=== PATIENT | male | born 1960 | race Caucasian/White ===

== ENCOUNTER 2019-06-05 12:37 | Emergency (ER) | payer BC ==
[2019-06-05 13:18] LABS: CHLORIDE,CL 98 mEq/L (98-106); SODIUM,NA 137 mEq/L (136-145)
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
== END 2019-06-05 17:40 | disposition home or self-care (01) ==
LOC: CC.ED 12:37
DX: R07.89 Other chest pain (principal); I10 Essential (primary) hypertension; E78.00 Pure hypercholesterolemia, unspecified; Z77.22 Contact with and (suspected) exposure to environmental tobacco smoke (acute) (chronic); Z79.899 Other long term (current) drug therapy; Z88.8 Allergy status to other drugs, medicaments and biological substances
CPT/HCPCS: 36415; 71046; 80053; 82550; 83615; 84484; 85025; 85610; 85730; 87070; 93005; 99285-25

== ENCOUNTER → 2020-03-12 | Day surgery (SDC) | payer BC ==
[~2020-03-12] MED LIST: Lactated Ringers 1,000 ML IV SCH; Propofol 200 MG/20 ML SDV IV ONE
--- NOTE | 2020-03-12 13:05 | OR ---
DATE OF OPERATION: 03/12/2020 PREOPERATIVE DIAGNOSIS: POSITIVE COLOGUARD. POSTOPERATIVE DIAGNOSIS: POSITIVE COLOGUARD. SURGEON: Satnam Collado MD PROCEDURE: FULL-LENGTH COLONOSCOPY. ANESTHESIA: MAC. COMPLICATIONS: None. SPECIMEN: None. FINDINGS: 1. Full-length colonoscopy. 2. Mild sigmoid diverticulosis. RECOMMENDATIONS: Routine colonoscopy per ACS guidelines. INDICATIONS: The patient was in for routine physical. He had elected to proceed with colon cancer screening with a Cologuard. Cologuard was positive and he agreed to diagnostic scope. DESCRIPTION OF PROCEDURE: The patient was prepped and draped, placed in the left lateral decubitus position. A lubricated Olympus colonoscope was inserted and with some degree of difficulty advanced to the cecum. The patient had a significant amount of scar tissue in his abdomen which made advancement very difficult and he was a tortuous scope as well as given his size. We were able to get over to the cecal pouch. I was able to directly look at the ileocecal valve and the appendiceal orifice. The bowel prep was adequate. Upon withdrawal of the scope throughout the entire length of the colon, I could find no signs of any polyps, mass, ulceration, or bleeding sites. There were no vascular abnormalities or signs of colitis. No signs of worrisome lesions. He does have scattered diverticula throughout the sigmoid, but mild in severity. No other abnormality seen. The rectal vault was benign. Retroflexion showed no perianal lesions. Air was suctioned, scope removed without complication. ELMA/BRISSA /[id number]
== END ==
LOC: CC.SDS 09:19
PROVIDERS: ATTEND Family Medicine
DX: R19.5 Other fecal abnormalities (principal); K57.30 Diverticulosis of large intestine without perforation or abscess without bleeding; I10 Essential (primary) hypertension; N40.0 Benign prostatic hyperplasia without lower urinary tract symptoms; E78.00 Pure hypercholesterolemia, unspecified; S31.109A Unspecified open wound of abdominal wall, unspecified quadrant without penetration into peritoneal cavity, initial encounter; G62.9 Polyneuropathy, unspecified; E66.9 Obesity, unspecified; M10.9 Gout, unspecified; Z88.8 Allergy status to other drugs, medicaments and biological substances; Z79.899 Other long term (current) drug therapy; Z77.22 Contact with and (suspected) exposure to environmental tobacco smoke (acute) (chronic); X58.XXXA Exposure to other specified factors, initial encounter; Z68.39 Body mass index [BMI] 39.0-39.9, adult
CPT/HCPCS: G0121; J2704; J7120

== ENCOUNTER 2021-10-15 08:48 | Inpatient (IN) | payer BC ==
[2021-10-15] MEDS ORDERED: Pantoprazole 40 MG Tab.CR PO STA (09:05)
[2021-10-15 09:35] LABS: CHLORIDE,CL 100 mEq/L (98-106); SODIUM,NA 139 mEq/L (136-145)
--- NOTE | 2021-10-15 09:41 | EDM.PDOC ---
ED HPI GENERAL MEDICAL PROBLEM - General Chief Complaint: General Stated Complaint: bloody emesis, stated awakened in cold sweat, bloody emesis x one Time Seen by Provider: 10/15/21 08:55 Source of Information: Reports: Patient, RN History Limitations: Reports: No Limitations - History of Present Illness Onset: Today Onset Date: 10/15/21 Onset Time: 05:00 Duration: Resolved Prior to Arrival Location: Reports: Abdomen Worsens with: Reports: Movement (dizzy when stands) Associated Symptoms: Reports: Other (dizzy) Treatments DESK MONITOR: Reports: Other (see below) (none) - Related Data Allergies Allergy/AdvReac Type Severity Reaction Status Date / Time betamethasone Allergy Cannot Verified 10/15/21 08:51 [From Lotrisone] Remember clotrimazole [From Lotrisone] Allergy Cannot Verified 10/15/21 08:51 Remember clotrimazole cream Allergy Cannot Uncoded 10/15/21 08:51 Remember Home Meds: Home Meds Gabapentin [Neurontin] 300 mg PO TID 02/04/19 [History] Lisinopril/Hydrochlorothiazide [Lisinopril-Hctz 20-25 mg Tab] 1 each PO DAILY 02/04/19 [History] Naproxen Sodium [Aleve] 220 mg PO TID PRN 02/04/19 [History] Simvastatin [Zocor] 40 mg PO DAILY 02/04/19 [History] Vitamin B Complex 1 each PO DAILY 02/04/19 [History] allopurinoL [Zyloprim] 300 mg PO DAILY 02/04/19 [History] Cholecalciferol (Vitamin D3) [Vitamin D3] 400 unit PO DAILY 03/12/20 [History] Past Medical History HEENT History: Reports: Hard of Hearing, Impaired Vision Cardiovascular History: Reports: High Cholesterol, Hypertension Musculoskeletal History: Reports: Gout Neurological History: Reports: Seizure - Past Surgical History Dermatological Surgical History: Reports: Plastic Surgical Reconstruction/Repair, Skin Graft Social & Family History - Family History Family Medical History: No Pertinent Family History - Caffeine Use Caffeine Use: Reports: Coffee, Tea ED ROS GENERAL - Review of Systems Review Of Systems: See Below Constitutional: Reports: No Symptoms HEENT: Reports: No Symptoms Respiratory: Reports: No Symptoms Cardiovascular: Reports: No Symptoms Endocrine: Reports: No Symptoms GI/Abdominal: Reports: Black Stool, Hematemesis : Reports: No Symptoms Musculoskeletal: Reports: No Symptoms Skin: Reports: Wound (approx 1 cm open area to abd, states mesh is working way out, none seen) Neurological: Reports: Dizziness (upn standing) Psychiatric: Reports: No Symptoms Hematologic/Lymphatic: Reports: No Symptoms Immunologic: Reports: No Symptoms ED EXAM, GENERAL - Physical Exam Exam: See Below Exam Limited By: No Limitations General Appearance: Alert, No Apparent Distress Nose: Normal Inspection, Normal Mucosa, No Blood Throat/Mouth: Normal Voice, No Airway Compromise Head: Atraumatic, Normocephalic Neck: Normal Inspection Respiratory/Chest: No Respiratory Distress, Lungs Clear, Normal Breath Sounds Cardiovascular: Normal Peripheral Pulses, Regular Rate, Rhythm GI/Abdominal: Normal Bowel Sounds, Soft, Non-Tender Extremities: Normal Range of Motion Neurological: Alert, Oriented, Normal Cognition Psychiatric: Normal Affect, Normal Mood Skin Exam: Warm, Dry, Normal Color, Wound/Incision (approx 1cm open area mid abd. multiple surgical scars present.) Course - Vital Signs Last Recorded V/S: Last Vital Signs Temp 98 F 10/15/21 08:53 Pulse 88 10/15/21 08:53 Resp 18 10/15/21 08:53 BP 123/75 10/15/21 08:53 Pulse Ox 96 10/15/21 08:53 Orthostatic Blood Pressure [ 114/71 Standing] Orthostatic Blood Pressure [ 101/71 Sitting] Orthostatic Blood Pressure [ 133/85 Supine] - Orders/Labs/Meds Orders: Active Orders 24 hr Category Date Time Status Orthostatic Vital Signs [RC] ASDIRECTED Care 10/15/21 09:06 Active Sodium Chloride 0.9% [Normal Saline] 1,000 ml Med 10/15/21 10:00 Active IV ASDIRECTED Medication Orders Sodium Chloride (Normal Saline) 1,000 mls @ 250 mls/hr IV ASDIRECTED KELSEY Last Admin: 10/15/21 14:13 Dose: 125 mls/hr Documented by: Infusion: 10/15/21 14:13 Dose: 250 mls/hr Documented by: Admin: 10/15/21 10:13 Dose: 250 mls/hr Documented by: SARAI Labs: Laboratory Tests 10/15/21 10/15/21 10/15/21 Range/Units 09:03 09:03 09:27 WBC 9.4 (4.0-11.0) 10^3/uL RBC 3.66 L (4.50-6.00) x10^6/uL Hgb 12.0 L (14.0-18.0) g/dL Hct 36.6 L (42.0-52.0) % MCV 100.0 H (83.0-97.0) fL MCH 32.8 H (27.0-32.0) pg MCHC 32.8 (32.0-36.0) g/dL RDW Coeff of Mushtaq 12.2 (11.0-15.0) % Plt Count 287 (150-400) 10^3/uL Immature Gran % (Auto) 0.5 (0.0-4.9) % Neut % (Auto) 72.1 H (41-71) % Lymph % (Auto) 17.3 L (24-44) % [place] % (Auto) 8.2 (0-10) % Eos % (Auto) 1.6 (0-6) % Baso % (Auto) 0.3 (0-1) % Neut # (Auto) 6.78 (1.80-8.00) x10^3/uL Lymph # (Auto) 1.63 (0.60-5.00) 10^3/uL [place] # (Auto) 0.77 (0.00-1.50) 10^3/uL Eos # (Auto) 0.15 (0.00-1.50) 10^3/uL Baso # (Auto) 0.03 (0.00-0.50) 10^3/uL Immature Gran # (Auto) 0.05 (0.00-0.49) 10^3/uL PT 11.5 (9.7-12.3) SEC INR 1.06 (0.92-1.18) APTT 20.9 L (23.2-32.3) SEC Sodium 139 (136-145) mEq/L Potassium 4.3 (3.5-5.0) mEq/L Chloride 100 (98-106) mEq/L Carbon Dioxide 31 (21-32) mmol/L BUN 35 H D (7-18) mg/dL Creatinine 1.1 (0.7-1.3) mg/dL Est Cr Clr Drug Dosing 68.23 mL/min Estimated GFR (MDRD) > 60 (>=60) mL/min Glucose 161 H D (75-99) mg/dL Calcium 8.5 (8.4-10.1) mg/dL Total Bilirubin 0.8 (0.0-1.0) mg/dL AST 36 (15-37) U/L ALT 44 (12-78) U/L Alkaline Phosphatase 66 (46-116) U/L Total Protein 6.3 L (6.4-8.2) g/dL Albumin 3.1 L (3.4-5.0) g/dL Meds: Medications Generic Name Dose Route Start Last Admin Trade Name Freq PRN Reason Stop Dose Admin Sodium Chloride 1,000 mls @ 250 mls/hr 10/15/21 10:00 10/15/21 14:13 Normal Saline IV 125 mls/hr ASDIRECTED KELSEY Administration Discontinued Medications Generic Name Dose Route Start Last Admin Trade Name Freq PRN Reason Stop Dose Admin Pantoprazole Sodium 40 mg 10/15/21 09:05 10/15/21 09:13 Pantoprazole 40 Mg Tab.Cr PO 10/15/21 09:06 40 mg STAT STA Administration - Re-Assessments/Exams Free Text/Narrative Re-Assessment/Exam: 10/15/21 14:35 hemocult positive, orthostatic vs positive and pt symptomatic upon sitting/standing, IVFs started Departure - Departure Time of Disposition: 11:00 Disposition: Refer to Observation Condition: Good Clinical Impression: GI bleed Qualifiers: GI bleed type/associated pathology: unspecified gastrointestinal hemorrhage type Qualified Code(s): K92.2 - Gastrointestinal hemorrhage, unspecified - Discharge Information Sepsis Event Note (ED) - Evaluation Sepsis Screening Result: No Definite Risk - Focused Exam Vital Signs: Vital Signs Temp Pulse Resp BP Pulse Ox 10/15/21 08:53 98 F 88 18 123/75 96 - Problem List & Annotations (1) GI bleed SNOMED Code(s): 48939707 Code(s): K92.2 - GASTROINTESTINAL HEMORRHAGE, UNSPECIFIED Status: Acute Current Visit: Yes Qualifiers: GI bleed type/associated pathology: unspecified gastrointestinal hemorrhage type Qualified Code(s): K92.2 - Gastrointestinal hemorrhage, unspecified - My Orders Last 24 Hours: My Active Orders 10/15/21 09:06 Orthostatic Vital Signs [RC] ASDIRECTED 10/15/21 10:00 Sodium Chloride 0.9% [Normal Saline] 1,000 ml IV ASDIRECTED - Assessment/Plan Admission H&P: Please use this note as an admission H&P Last 24 Hours: My Active Orders 10/15/21 09:06 Orthostatic Vital Signs [RC] ASDIRECTED 10/15/21 10:00 Sodium Chloride 0.9% [Normal Saline] 1,000 ml IV ASDIRECTED
[2021-10-15 09:47] LABS: PTT,PARTIAL THROMBOPLSTIN TIME 20.9 SEC (23.2-32.3)
[2021-10-15] MEDS: Sodium Chloride 0.9% 1,000 ML IV SCH ×3 (10:13→21:25)
[2021-10-15] MEDS ORDERED: Ondansetron 4 MG/2 ML SDV IV PRN (16:11)
[2021-10-15] MEDS ORDERED: Pantoprazole 40 MG Vial IVPUSH SCH (16:11)
[2021-10-15] MEDS: Pantoprazole 40 MG Vial IVPUSH SCH (19:53)
[2021-10-15] MEDS: GABAPENTIN 600 MG PO SCH (19:53)
[2021-10-15] MEDS ORDERED: Gabapentin 300 MG Cap PO SCH (20:00)
[2021-10-16] MEDS: Sodium Chloride 0.9% 1,000 ML IV SCH ×2 (05:49→14:22)
[2021-10-16 07:33] LABS: CHLORIDE,CL 104 mEq/L (98-106); SODIUM,NA 137 mEq/L (136-145)
[2021-10-16] MEDS: LISINOPRIL PO SCH (08:05)
[2021-10-16] MEDS: HCTZ PO SCH (08:05)
[2021-10-16] MEDS: GABAPENTIN 600 MG PO SCH ×3 (08:06→19:41)
[2021-10-16] MEDS: Simvastatin 40 MG Tab **OWN MED PO SCH (08:06)
[2021-10-16] MEDS: Allopurinol 300 MG Tab **OWN MED PO SCH (08:07)
[2021-10-16] MEDS: Pantoprazole 40 MG Vial IVPUSH SCH ×2 (08:48→19:39)
[2021-10-16] MEDS: Cholecalciferol (Vitamin D3) 25 MCG Tab PO SCH (08:48)
[2021-10-16] MEDS: Vitamin B Complex Cap PO SCH (08:48)
--- NOTE | 2021-10-16 10:29 | PCM.PN ---
- General Info Date of Service: 10/16/21 Admission Dx/Problem (Free Text): GI BLEED Subjective Update: Admitted yesterday through ER with GI bleed, had positive hemocult of stool and reported bloody emesis x one prior to arrival. H&H decreased this AM, will check CBC in six hours. Tolerating clear liquids, denies dizziness any longer. Instructed to notify staff of BM or emesis. Placed on PPI and IVFs yesterday. Functional Status: Reports: Tolerating Diet, Urinating - Review of Systems General: Reports: No Symptoms HEENT: Reports: No Symptoms Pulmonary: Reports: No Symptoms Cardiovascular: Reports: No Symptoms Gastrointestinal: Reports: No Symptoms Genitourinary: Reports: No Symptoms Musculoskeletal: Reports: No Symptoms Skin: Reports: Other (approx 1 cm open wound to abdomen) Neurological: Reports: No Symptoms Psychiatric: Reports: No Symptoms - Patient Data Vitals - Most Recent: Last Vital Signs Temp 98.5 F 10/16/21 04:00 Pulse 69 10/16/21 04:00 Resp 18 10/16/21 04:00 BP 118/78 10/16/21 04:00 Pulse Ox 95 10/16/21 04:00 Orthostatic Blood Pressure [ 114/71 Standing] Orthostatic Blood Pressure [ 101/71 Sitting] Orthostatic Blood Pressure [ 133/85 Supine] Weight - Most Recent: 250 lb I&O - Last 24 Hours: Intake & Output 10/15/21 10/16/21 10/16/21 22:59 06:59 14:59 Intake Total 1240 2000 Output Total 1100 Balance 1240 900 Lab Results Last 24 Hours: Laboratory Results - last 24 hr 10/16/21 10/16/21 Range/Units 07:15 07:15 WBC 7.2 (4.0-11.0) 10^3/uL RBC 2.87 L (4.50-6.00) x10^6/uL Hgb 9.7 L (14.0-18.0) g/dL Hct 29.0 L (42.0-52.0) % MCV 101.0 H (83.0-97.0) fL MCH 33.8 H (27.0-32.0) pg MCHC 33.4 (32.0-36.0) g/dL RDW Coeff of Mushtaq 12.5 (11.0-15.0) % Plt Count 238 (150-400) 10^3/uL Immature Gran % (Auto) 0.4 (0.0-4.9) % Neut % (Auto) 65.7 (41-71) % Lymph % (Auto) 19.3 L (24-44) % [place] % (Auto) 10.5 H (0-10) % Eos % (Auto) 3.7 (0-6) % Baso % (Auto) 0.4 (0-1) % Neut # (Auto) 4.73 (1.80-8.00) x10^3/uL Lymph # (Auto) 1.39 (0.60-5.00) 10^3/uL [place] # (Auto) 0.76 (0.00-1.50) 10^3/uL Eos # (Auto) 0.27 (0.00-1.50) 10^3/uL Baso # (Auto) 0.03 (0.00-0.50) 10^3/uL Immature Gran # (Auto) 0.03 (0.00-0.49) 10^3/uL Sodium 137 (136-145) mEq/L Potassium 3.7 (3.5-5.0) mEq/L Chloride 104 (98-106) mEq/L Carbon Dioxide 30 (21-32) mmol/L BUN 15 D (7-18) mg/dL Creatinine 1.0 (0.7-1.3) mg/dL Est Cr Clr Drug Dosing 75.05 mL/min Estimated GFR (MDRD) > 60 (>=60) mL/min Glucose 120 H D (75-99) mg/dL Calcium 8.0 L (8.4-10.1) mg/dL Total Bilirubin 0.5 (0.0-1.0) mg/dL AST 31 (15-37) U/L ALT 34 (12-78) U/L Alkaline Phosphatase 57 (46-116) U/L Total Protein 5.6 L (6.4-8.2) g/dL Albumin 2.7 L (3.4-5.0) g/dL Tre Results Last 24 Hours: Microbiology 10/15/21 09:29 Stool Occult Blood (TRE) - Final Stool / Feces Med Orders - Current: Current Medications Allopurinol (Allopurinol 300 Mg Tab Own Med) 300 mg PO DAILY [facility] Last Admin: 10/16/21 08:07 Dose: 300 mg Documented by: Cholecalciferol (Cholecalciferol (Vitamin D3) 25 Mcg Tab) 12.5 mcg PO DAILY [facility] Last Admin: 10/16/21 08:48 Dose: 12.5 mcg Documented by: Sodium Chloride (Normal Saline) 1,000 mls @ 125 mls/hr IV ASDIRECTED [facility] Last Admin: 10/16/21 05:49 Dose: 125 mls/hr Documented by: Lisinopril/Hctz 20- (25 Own Med) 0 each PO DAILY [facility] Last Admin: 10/16/21 08:05 Dose: 1 each Documented by: Gabapentin 600 Mg (Tab Own Med) 0 each PO TID [facility] Last Admin: 10/16/21 08:06 Dose: 1 each Documented by: Ondansetron HCl (Ondansetron 4 Mg/2 Ml Sdv) 4 mg IV Q4H PRN PRN Reason: Nausea/Vomiting Pantoprazole Sodium (Pantoprazole 40 Mg Vial) 40 mg IVPUSH [facility] Last Admin: 10/16/21 08:48 Dose: 40 mg Documented by: Simvastatin (Simvastatin 40 Mg Tab Own Med) 40 mg PO DAILY [facility] Last Admin: 10/16/21 08:06 Dose: 40 mg Documented by: Vitamin B Complex (Vitamin B Complex Cap) 1 each PO DAILY [facility] Last Admin: 10/16/21 08:48 Dose: 1 each Documented by: Discontinued Medications Gabapentin (Gabapentin 300 Mg Cap) 300 mg PO TID [facility] Sodium Chloride (Normal Saline) 1,000 mls @ 125 mls/hr IV ASDIRECTED [facility] Last Admin: 10/15/21 14:13 Dose: 125 mls/hr Documented by: Pantoprazole Sodium (Pantoprazole 40 Mg Tab.Cr) 40 mg PO STAT ST[facility] Stop: 10/15/21 09:06 Last Admin: 10/15/21 09:13 Dose: 40 mg Documented by: Pantoprazole Sodium (Pantoprazole 40 Mg Vial) 40 mg IVPUSH Q12H [facility] Last Admin: 10/15/21 17:47 Dose: Not Given Documented by: - Exam General: Alert, Oriented, Cooperative, No Acute Distress HEENT: EOMI, Mucous Membr. Moist/[place] Neck: Supple, Trachea Midline Lungs: Clear to Auscultation, Normal Respiratory Effort Cardiovascular: Regular Rate, Regular Rhythm GI/Abdominal Exam: Normal Bowel Sounds, Soft, Non-Tender, No Distention Back Exam: Full Range of Motion Extremities: Normal Range of Motion, Non-Tender, Normal Capillary Refill Skin: Warm, Dry, Other (aprox 1cm open area to abd) Wound/Incisions: Dressing Dry and Intact Neurological: No New Focal Deficit Psy/Mental Status: Alert, Normal Affect, Normal Mood - Patient Data Lab Results Last 24 hrs: Laboratory Results - last 24 hr 10/16/21 10/16/21 Range/Units 07:15 07:15 WBC 7.2 (4.0-11.0) 10^3/uL RBC 2.87 L (4.50-6.00) x10^6/uL Hgb 9.7 L (14.0-18.0) g/dL Hct 29.0 L (42.0-52.0) % MCV 101.0 H (83.0-97.0) fL MCH 33.8 H (27.0-32.0) pg MCHC 33.4 (32.0-36.0) g/dL RDW Coeff of Mushtaq 12.5 (11.0-15.0) % Plt Count 238 (150-400) 10^3/uL Immature Gran % (Auto) 0.4 (0.0-4.9) % Neut % (Auto) 65.7 (41-71) % Lymph % (Auto) 19.3 L (24-44) % [place] % (Auto) 10.5 H (0-10) % Eos % (Auto) 3.7 (0-6) % Baso % (Auto) 0.4 (0-1) % Neut # (Auto) 4.73 (1.80-8.00) x10^3/uL Lymph # (Auto) 1.39 (0.60-5.00) 10^3/uL [place] # (Auto) 0.76 (0.00-1.50) 10^3/uL Eos # (Auto) 0.27 (0.00-1.50) 10^3/uL Baso # (Auto) 0.03 (0.00-0.50) 10^3/uL Immature Gran # (Auto) 0.03 (0.00-0.49) 10^3/uL Sodium 137 (136-145) mEq/L Potassium 3.7 (3.5-5.0) mEq/L Chloride 104 (98-106) mEq/L Carbon Dioxide 30 (21-32) mmol/L BUN 15 D (7-18) mg/dL Creatinine 1.0 (0.7-1.3) mg/dL Est Cr Clr Drug Dosing 75.05 mL/min Estimated GFR (MDRD) > 60 (>=60) mL/min Glucose 120 H D (75-99) mg/dL Calcium 8.0 L (8.4-10.1) mg/dL Total Bilirubin 0.5 (0.0-1.0) mg/dL AST 31 (15-37) U/L ALT 34 (12-78) U/L Alkaline Phosphatase 57 (46-116) U/L Total Protein 5.6 L (6.4-8.2) g/dL Albumin 2.7 L (3.4-5.0) g/dL Result Diagrams: 10/16/21 07:15 10/16/21 07:15 Tre Results Last 24 hrs: Microbiology 10/15/21 09:29 Stool Occult Blood (TRE) - Final Stool / Feces Sepsis Event Note - Evaluation Sepsis Screening Result: No Definite Risk - Focused Exam Vital Signs: Vital Signs Temp Pulse Resp BP Pulse Ox 10/16/21 04:00 98.5 F 69 18 118/78 95 10/15/21 22:47 100.1 F 69 20 141/88 H 96 - Problem List & Annotations (1) GI bleed SNOMED Code(s): 94200124 Code(s): K92.2 - GASTROINTESTINAL HEMORRHAGE, UNSPECIFIED Status: Acute Current Visit: Yes Qualifiers: GI bleed type/associated pathology: unspecified gastrointestinal hemorrhage type Qualified Code(s): K92.2 - Gastrointestinal hemorrhage, unspecified - Problem List Review Problem List Initiated/Reviewed/Updated: Yes - My Orders Last 24 Hours: My Active Orders 10/15/21 15:24 Resuscitation Status Routine 10/15/21 15:29 Orthostatic Vital Signs [RC] 0800 10/15/21 15:30 Sodium Chloride 0.9% [Normal Saline] 1,000 ml IV ASDIRECTED 10/15/21 16:11 Ondansetron [Zofran] 4 mg IV Q4H PRN 10/15/21 16:11 Patient Status [ADT] Routine Cardiac Monitoring [RC] 799,1999 Intake and Output [RC] .PRN May Shower [RC] .PRN Oxygen Therapy [RC] PRN Up With Assistance [RC] .PRN Vital Signs [RC] 0000,0400,0800,1200,1600,199910/15/21 Dinner Clear Liquid Diet [DIET] 10/15/21 20:00 Non-Formulary Medication [NF Drug] 0 each PO TID Pantoprazole [ProTONIX IV] 40 mg IVPUSH 799,199910/16/21 08:00 Cholecalciferol (Vitamin D3) [Vitamin D3] 12.5 mcg PO DAILY Lisinopril/Hydrochlorothiazide [Lisinopril-Hctz 20-25 mg Tab] 0 each PO DAILY Simvastatin [Zocor] 40 mg PO DAILY Vitamin B Complex 1 each PO DAILY allopurinoL [Zyloprim] 300 mg PO DAILY 10/17/21 05:11 CBC WITH AUTO DIFF [HEME] AM CMP [COMPREHENSIVE METABOLIC PN,CMP] [CHEM] AM - Plan Plan:: Mupirocin to abd. Will check CBC six hours from this morning's labs. Will consult GI in AM.
[2021-10-16] MEDS ORDERED: Bacitracin Oint 28.35 GM Tube ONE (15:30)
[2021-10-16] MEDS: Mupirocin Oint 22 GM Tube TOP SCH (19:47)
[2021-10-17 06:44] LABS: CHLORIDE,CL 103 mEq/L (98-106); SODIUM,NA 141 mEq/L (136-145)
[2021-10-17] MEDS ORDERED: Acetaminophen 500 MG Tab PO ONE (06:50)
[2021-10-17] MEDS ORDERED: Acetaminophen 325 MG Tab PO PRN (06:57)
[2021-10-17] MEDS: Vitamin B Complex Cap PO SCH (10:26)
[2021-10-17] MEDS: Cholecalciferol (Vitamin D3) 25 MCG Tab PO SCH (10:27)
[2021-10-17] MEDS: Pantoprazole 40 MG Vial IVPUSH SCH ×2 (10:27→20:27)
[2021-10-17] MEDS: LISINOPRIL PO SCH (10:46)
[2021-10-17] MEDS: GABAPENTIN 600 MG PO SCH ×3 (10:46→20:27)
[2021-10-17] MEDS: HCTZ PO SCH (10:46)
[2021-10-17] MEDS: Allopurinol 300 MG Tab **OWN MED PO SCH (10:47)
[2021-10-17] MEDS: Simvastatin 40 MG Tab **OWN MED PO SCH (10:47)
[2021-10-17] MEDS: Sodium Chloride 0.9% 1,000 ML IV SCH ×2 (10:49→18:34)
--- NOTE | 2021-10-17 11:12 | PN ---
DATE: 10/17/2021 S: Mr. Huffman presented with a typical upper GI bleed with a positive Hemoccult and bloody emesis prior to his arrival. It sounds like, he had had some dark stools about a month ago, got better, and over the last 5 to 6 days has noticed melenic stools. Does not really admit to a lot of abdominal pain but does admit to NSAID use daily. His vitals have been fine since here. His initial hemoglobin was over 12. It has dropped to 9.7 but held there for the last 2 days. Blood pressures have been fine. Unfortunately, this morning, he did spike a temperature up to 102, it is 101.4 now. Blood cultures were obtained. No other workup. O: GENERAL: The patient is pleasant, alert, and cooperative. HEENT: Grossly benign. NECK: Supple. Veins are flat. LUNGS: Sounds appear clear. CARDIAC: Tones regular. ABDOMEN: Has some very mild epigastric discomfort, otherwise benign. ASSESSMENT: 1. LIKELY UPPER GASTROINTESTINAL BLEED RELATED TO NSAIDS. 2. FEVER. 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 I do not think this is the source of his fever. This has been there for years and years, and there is no redness there. I am going to get a chest x-ray, COVID test, and urinalysis. We will hold off any antibiotics until we find a positive source if we do. I am going to schedule him for an EGD in the morning. We will continue to have him basically n.p.o. with water sips, and he will continue with b.i.d. IV Protonix. I believe, he is typed and crossed for 2 units and no other changes at this time. ELMA/BRISSA /[id number]
[2021-10-17 11:18] LABS: CORONAVIRUS COVID-19 NAA NEGATIVE (NEGATIVE)
[2021-10-17] MEDS: Mupirocin Oint 22 GM Tube TOP SCH ×2 (12:00→20:41)
[2021-10-17] MEDS: Acetaminophen 325 MG Tab PO PRN (20:53)
[2021-10-18] MEDS: Acetaminophen 325 MG Tab PO PRN (01:01)
[2021-10-18] MEDS: Sodium Chloride 0.9% 1,000 ML IV SCH ×2 (01:08→13:13)
[2021-10-18] MEDS: Pantoprazole 40 MG Vial IVPUSH SCH ×2 (07:38→19:37)
[2021-10-18] MEDS: Mupirocin Oint 22 GM Tube TOP SCH ×2 (07:40→20:50)
[2021-10-18] MEDS: GABAPENTIN 600 MG PO SCH (08:20)
[2021-10-18] MEDS: Simvastatin 40 MG Tab **OWN MED PO SCH (08:20)
[2021-10-18] MEDS: Allopurinol 300 MG Tab **OWN MED PO SCH (08:20)
[2021-10-18] MEDS ORDERED: Lactated Ringers 1,000 ML IV SCH (09:00)
[2021-10-18] MEDS ORDERED: Meperidine PF 25 MG/ML SDV IV ONE (09:48)
[2021-10-18] MEDS ORDERED: Midazolam 1 MG/ML 2 ML SDV IV ONE (09:56)
[2021-10-18] MEDS: Hydrochlorothiazide 25 MG Tab PO SCH (10:20)
[2021-10-18] MEDS: Lisinopril 20 MG Tab PO SCH (10:20)
[2021-10-18] MEDS: Gabapentin 300 MG Cap PO SCH (10:21)
[2021-10-18] MEDS: Cholecalciferol (Vitamin D3) 25 MCG Tab PO SCH (10:21)
[2021-10-18] MEDS: Allopurinol 300 MG Tab PO SCH (10:21)
[2021-10-18] MEDS: Vitamin B Complex Cap PO SCH (10:21)
--- NOTE | 2021-10-18 11:46 | PN ---
DATE: 10/18/2021 S: Antelmo has done well and his vitals have been fine. He had his EGD this morning, which showed an anastomotic ulcer in his stomach from a prior partial enterectomy. For the most part, he has had no further issues with abdominal pain and bloody stools. He did again run a low-grade temp last night. Lab yesterday showed negative urine, and he had an essentially negative chest x-ray. Still waiting on report on the chest. This morning, he felt fine for his EGD. He had no complaints of abdominal pain. He is hungry and wants to start advancing his diet. O: HEENT: Remain grossly benign. NECK: Supple and veins are flat. LUNGS: Sounds appear to be clear. CARDIAC: Tones are regular. ABDOMEN: Still has a little bit epigastric pain, but minimal. EXTREMITIES: No peripheral edema. ASSESSMENT: GASTROINTESTINAL BLEED SECONDARY TO ANASTOMOTIC ULCER. P: We will advance him to a full liquid diet and see how he tolerates things. We will continue to monitor his hemoglobins for at least another day and then plan on discharge. He remains on IV Pepcid b.i.d. ELMA/BRISSA /[id number]
--- NOTE | 2021-10-18 11:46 | OR ---
DATE OF OPERATION: 10/18/2021 PREOPERATIVE DIAGNOSIS: GASTROINTESTINAL BLEED. POSTOPERATIVE DIAGNOSIS: GASTROINTESTINAL BLEED. SURGEON: Satnam Collado MD PROCEDURE: DIAGNOSTIC ESOPHAGOGASTRODUODENOSCOPY WITH PAULINE. ANESTHESIA: Conscious sedation with continuous O2 saturation monitoring and nurse assist. COMPLICATIONS: None. SPECIMEN: Antral PAULINE. FINDINGS: 1. Diagnostic EGD. 2. Anastomotic ulcer with adherent clot. RECOMMENDATIONS: The patient will continue with aggressive medical management. INDICATIONS: The patient presented with upper GI bleed and dropping of his hemoglobins. He was admitted to the hospital for appropriate cares and diagnostic EGD ordered. DESCRIPTION OF PROCEDURE: The patient was prepped and draped, placed in the left lateral decubitus position. A lubricated Olympus gastroscope was inserted over a bite block, advanced to cricopharyngeus and easily intubated into the esophagus. The esophageal lining was benign in its entire course. The Z-line was crisp and sharp around 40 cm. There was no hiatal hernia. No distal esophagitis, stricturing, ulceration, or Sutherland's changes. The scope was advanced into the stomach, where the patient appears to have end-to-end anastomosis after a partial antrectomy. There was no signs of any bleeding on the small bowel side of the anastomosis, but proximal to it there was a shallow ulcer with adherent clot, very friable, bled just a little bit while we were doing the scope and then stopped on its own. We did do an antral PAULINE. No other lesions were found. Air was suctioned and scope removed without complication. Picture verification was taken of all findings. ELMA/BRISSA /[id number]
[2021-10-18] MEDS ORDERED: Gabapentin 300 MG Cap PO SCH (20:00)
[2021-10-18] MEDS ORDERED: Simvastatin 40 MG Tab PO SCH (20:00)
[2021-10-19] MEDS: Cholecalciferol (Vitamin D3) 25 MCG Tab PO SCH (07:59)
[2021-10-19] MEDS: Allopurinol 300 MG Tab PO SCH (08:04)
[2021-10-19] MEDS: Lisinopril 20 MG Tab PO SCH (08:05)
[2021-10-19] MEDS: Hydrochlorothiazide 25 MG Tab PO SCH (08:05)
[2021-10-19] MEDS: Vitamin B Complex Cap PO SCH (08:05)
[2021-10-19] MEDS: Gabapentin 300 MG Cap PO SCH (08:06)
[2021-10-19] MEDS: Mupirocin Oint 22 GM Tube TOP SCH (08:07)
[2021-10-19] MEDS: Pantoprazole 40 MG Vial IVPUSH SCH (08:26)
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
== END 2021-10-19 11:20 | disposition home or self-care (01) | DRG 241 ==
LOC: CC.ED 08:48 → CC.MS 11:00 → UNDOADMOB 11:00 → CC.MS 15:24 → OBSVTOIN 10-17 11:10
PROVIDERS: ADMIT Nurse Practitioner Family; ATTEND Family Medicine
PROC: 0DJ08ZZ Inspection of Upper Intestinal Tract, Via Natural or Artificial Opening Endoscopic (ICD-10-PCS; principal; 2021-10-18)
DX: K25.4 Chronic or unspecified gastric ulcer with hemorrhage (principal); Z20.822 Contact with and (suspected) exposure to COVID-19; G89.29 Other chronic pain; L98.8 Other specified disorders of the skin and subcutaneous tissue; H54.7 Unspecified visual loss; H91.90 Unspecified hearing loss, unspecified ear; E78.00 Pure hypercholesterolemia, unspecified; I10 Essential (primary) hypertension; M10.9 Gout, unspecified; Z79.899 Other long term (current) drug therapy; Z88.8 Allergy status to other drugs, medicaments and biological substances
CPT/HCPCS: 0240U; 36415; 71046; 80053; 81001; 82272; 85018; 85025; 85610; 85730; 87040; 87081; 96374; 96376; 99285; A9270-GY; C9113; G0378; J2175; J2250; J7030; J7120

== ENCOUNTER → 2021-11-25 | Day surgery (SDC) | payer BC ==
[~2021-11-25] MED LIST changes: +Ketamine 200 MG/20 ML MDV ONE; -Propofol 200 MG/20 ML SDV IV ONE; +Propofol 200 MG/20 ML SDV ONE; +fentaNYL 100 MCG/2 ML SDV ONE
== END ==
LOC: CC.SDS 07:54
PROVIDERS: ATTEND Family Medicine
DX: K25.4 Chronic or unspecified gastric ulcer with hemorrhage (principal); N40.0 Benign prostatic hyperplasia without lower urinary tract symptoms; M10.9 Gout, unspecified; E78.00 Pure hypercholesterolemia, unspecified; G62.9 Polyneuropathy, unspecified; E66.9 Obesity, unspecified; Z98.890 Other specified postprocedural states; Z88.8 Allergy status to other drugs, medicaments and biological substances; Z79.899 Other long term (current) drug therapy
CPT/HCPCS: 00731; 87081; J2704; J3010; J7120

== ENCOUNTER 2022-07-13 14:46 | Emergency (ER) | payer BC ==
[2022-07-13] MEDS ORDERED: Sodium Chloride 0.9% 10 ML Syringe FLUSH PRN (15:30)
[2022-07-13] MEDS ORDERED: Piperacillin/Tazobactam 4.5 GM in Sodium Chloride 0.9% 100 ML IV ONE (15:30)
[2022-07-13] MEDS ORDERED: Lactated Ringers 1,000 ML IV SCH (15:30)
== END 2022-07-13 17:14 | disposition critical access hospital (66) ==
LOC: CC.ED 14:46
DX: K65.0 Generalized (acute) peritonitis (principal); E78.00 Pure hypercholesterolemia, unspecified; I10 Essential (primary) hypertension; M10.9 Gout, unspecified; Z79.899 Other long term (current) drug therapy; Z20.822 Contact with and (suspected) exposure to COVID-19
CPT/HCPCS: 36415; 71045; 80053; 81001; 83605; 85025; 87040; 96365; 96367; 99284; 99284-25; J2543; J3370; J7060; J7120; U0002

== ENCOUNTER 2023-01-07 16:23 | Emergency (ER) | payer BC, MEDICAID ==
[2023-01-07] MEDS ORDERED: Lidocaine 2% 5 ML SDV INJECT ONE (16:52)
[2023-01-07] MEDS ORDERED: ceFAZolin 2 GM Vial IVPUSH ONE (16:57)
[2023-01-07] MEDS ORDERED: fentaNYL 50 MCG/ML SDV IVPUSH ONE (17:59)
[2023-01-07] MEDS ORDERED: Take Home: Acetaminophen/HYDROcodone 325-5 MG, 2 Tab Pack PO ONE (18:49)
== END 2023-01-07 19:05 | disposition home or self-care (01) ==
LOC: CC.ED 16:23
DX: S62.632B Displaced fracture of distal phalanx of right middle finger, initial encounter for open fracture (principal); E78.00 Pure hypercholesterolemia, unspecified; I10 Essential (primary) hypertension; M10.9 Gout, unspecified; Z88.8 Allergy status to other drugs, medicaments and biological substances; Z79.899 Other long term (current) drug therapy; W22.8XXA Striking against or struck by other objects, initial encounter
CPT/HCPCS: 12002; 73130-RT; 96374; 96375; 99283-25; 99284; A9270-GY; J0690; J3010; J3490

== ENCOUNTER 2024-08-04 15:48 | Emergency (ER) | payer MEDICARE ==
[2024-08-04 16:12] LABS: BASOPHILS ABSOLUTE AUTO 0.03 10^3/uL (0.00-0.50); BASOPHILS PERCENT AUTO 0.3 % (0-1); EOSINOPHILS ABSOLUTE AUTO 0.23 10^3/uL (0.00-1.50); EOSINOPHILS PERCENT AUTO 2.1 % (0-6); HEMATOCRIT 42.2 % (42.0-52.0); HEMOGLOBIN 13.8 g/dL (14.0-18.0); IMMATURE GRAN ABSOLUTE AUTO 0.04 10^3/uL (0.00-0.49); IMMATURE GRAN PERCENT AUTO 0.4 % (0.0-4.9); LYMPHOCYTES ABSOLUTE AUTO 1.95 10^3/uL (0.60-5.00); LYMPHOCYTES PERCENT AUTO 17.7 % (24-44); MEAN CORPUSCULAR HEMOGLOBIN 33.8 pg (27.0-32.0); MEAN CORPUSCULAR HGB CONC 32.7 g/dL (32.0-36.0); MEAN CORPUSCULAR VOLUME 103.4 fL (83.0-97.0); MONOCYTES ABSOLUTE AUTO 1.36 10^3/uL (0.00-1.50); MONOCYTES PERCENT AUTO 12.3 % (0-10); NEUTROPHILS ABSOLUTE AUTO 7.42 x10^3/uL (1.80-8.00); NEUTROPHILS PERCENT AUTO 67.2 % (41-71); PLATELET COUNT,PLT 316 10^3/uL (150-400); RED BLOOD CELL COUNT 4.08 x10^6/uL (4.50-6.00)
[2024-08-04 16:27] LABS: ALBUMIN 4.1 g/dL (3.4-5.0); BILIRUBIN TOTAL 0.7 mg/dL (0.0-1.0); C-REACTIVE PROTEIN 0.6 mg/dL (<=0.50); CALCIUM 9.8 mg/dL (8.4-10.1); CREATININE 1.4 mg/dL (0.7-1.3); EST CRCL DRUG DOSING (CG) 51.57 mL/min; POTASSIUM,K 4.3 mEq/L (3.5-5.0); PROTEIN TOTAL,TP 8.2 g/dL (6.4-8.2)
== END 2024-08-04 17:25 | disposition home or self-care (01) ==
LOC: CC.ED 15:48
DX: S06.0X1A Concussion with loss of consciousness of 30 minutes or less, initial encounter (principal); M54.2 Cervicalgia; E78.00 Pure hypercholesterolemia, unspecified; I10 Essential (primary) hypertension; Z79.899 Other long term (current) drug therapy; W19.XXXA Unspecified fall, initial encounter
CPT/HCPCS: 36415; 70450; 72125; 80053; 85025; 86140; 99284